=== PATIENT | male | born 1955 | race Caucasian/White ===

== ENCOUNTER 2024-10-17 17:47 | Emergency (ER) | payer MEDICARE, MEDICAID ==
[~2024-10-17] VITALS: Ht 193 cm; Wt 111.0 kg
[~2024-10-17 17:47] MED LIST: ALBUTEROL; BACL10TA2 PO; FLO0.1T PO; FURO-150 PO; LACT-373 PO; LORA10TA7 PO; MIDO10TA3 PO; MULT-25 PO; OMEP40CA21 PO; ONDA-103 PO; RIFA550T PO
[2024-10-17 18:28] LABS: BASOPHILS % (AUTO) 0.3 % (0-1); EOSINOPHILS # (AUTO) 0.1 X10'3 (0-0.9); EOSINOPHILS % (AUTO) 0.6 % (0-6); HEMATOCRIT 28.4 % (42.0-52.0); HEMOGLOBIN 9.9 g/dl (14.0-17.9); LYMPHOCYTES # (AUTO) 1.6 X10'3 (1.1-4.8); LYMPHOCYTES % (AUTO) 17.5 % (21-51); MEAN CORPUSCULAR HEMOGLOBIN 37.7 PG (27.0-31.0); MEAN CORPUSCULAR HGB CONC 34.8 g/dL (33.0-36.5); MEAN CORPUSCULAR VOLUME 108.5 FL (78-98); MEAN PLATELET VOLUME 7.9 FL (7.4-10.4); MONOCYTES # (AUTO) 0.7 X10'3 (0-0.9); MONOCYTES % (AUTO) 7.5 % (2-12); NEUTROPHILS % (AUTO) 74.1 % (42-75); PLATELET COUNT 68 X10'3 (140-440); RED BLOOD COUNT 2.62 X10'6 (4.70-6.10); RED CELL DISTRIBUTION WIDTH 19.4 % (11.5-14.5); WHITE BLOOD COUNT 9.4 X10'3 (4.5-11.0)
[2024-10-17 18:43] LABS: ALANINE AMINOTRANSFERASE 55 U/L (12-78); ALBUMIN 2.3 G/DL (3.4-5.0); ALKALINE PHOSPHATASE 130 IU/L (46-116); ANION GAP 4 (8-16); ASPARTATE AMINO TRANSFERASE 72 U/L (10-37); BILIRUBIN,TOTAL 5.3 MG/DL (0.1-1.0); BLOOD UREA NITROGEN 22 MG/DL (7-18); BUN/CREATININE RATIO 18.5 (10.0-20.0); CALCIUM 9.1 MG/DL (8.5-10.1); CHLORIDE 103 MMOL/L (99-107); CREATININE 1.19 MG/DL (0.60-1.10); LIPASE 32 U/L (16-77); POTASSIUM 3.6 MMOL/L (3.5-5.1); SODIUM 134 MMOL/L (135-145); TOTAL CARBON DIOXIDE 27.3 MMOL/L (24-32); eCRCL 71 ML/MIN; eGFR 60 ML/MIN
[2024-10-17 18:44] LABS: ALBUMIN/GLOBULIN RATIO 0.5 (1.1-1.5); GLUCOSE 123 MG/DL (70-104); TOTAL PROTEIN 7.1 G/DL (6.4-8.2)
[2024-10-17 18:45] LABS: ANISOCYTOSIS 2+; PLATELET ESTIMATE DECREASED
[2024-10-17] MEDS: baclofen 10mg tablet PO STA (19:28)
[2024-10-17] MEDS: normal saline 1000ml 1,000 ML IV ONE (20:00)
[2024-10-17] MEDS: albumin (human) 25% 100 ML IV solution IV ONE (20:31)
[2024-10-18] VITALS: BP 109/64; PULSE 94; RESP 16; TEMP 98; O2SAT 98
== END 2024-10-18 00:07 | disposition home or self-care (01) ==
LOC: ER 17:50
DX: R18.8 Other ascites (principal); D64.9 Anemia, unspecified; Z88.5 Allergy status to narcotic agent; Z88.6 Allergy status to analgesic agent; Z79.899 Other long term (current) drug therapy
CPT/HCPCS: 36415; 49083; 80053; 83690; 85008; 85025; 96361; 96365; 99285; J7030; P9047; Z7610

== ENCOUNTER 2024-12-25 13:27 | Emergency (ER) | payer MEDICARE, MEDICAID ==
[~2024-12-25] VITALS: Ht 193 cm; Wt 110.5 kg
[~2024-12-25 13:27] MED LIST changes: -FLO0.1T PO; +FLUD0.1T2 PO
[2024-12-25 13:36] VITALS: TEMP 98.3
--- NOTE | 2024-12-25 14:07 | Physician Documentation ---
History of Present Illness Chief Complaint: See Chief Complaint Stated Complaint: ABD PAIN Time Seen by MD: 13:51 Mode of Arrival: POV HPI 69-year-old male presents to the ED with a complaint of abdominal distention likely secondary to previously diagnosed ascites. States he attempted to get his ascites tapped via paracentesis in the outpatient setting but was unable to obtain an appointment due to his doctor being out of town. Reports increased shortness of breath abdominal pain Day of Onset: Dec 25, 2024 Medication Reconciliation Allergies: Coded Allergies: acetaminophen (Unverified Allergy, Unknown, D/T CIRRHOSIS, 10/08/24) hydrocodone (Unverified Allergy, Unknown, D/T CIRRHOSIS, 10/08/24) ibuprofen (Unverified Allergy, Unknown, D/T CIRRHOSIS, 10/08/24) Scheduled Baclofen (Baclofen), 0.5 TAB PO TID, (Reported) Fludrocortisone Acetate* (Florinef*), 0.2 MG PO DAILY@0830 Furosemide* (Lasix*), 1 TAB PO DAILY, (Reported) Lactulose (Lactulose), 45 GM PO Q6H Loratadine (Loratadine), 1 TAB PO DAILY, (Reported) Midodrine Hcl (Midodrine Hcl), 1 TAB PO TID, (Reported) Multivitamin with Folic Acid (Thera Tablet), 1 EACH PO DAILY Omeprazole (Prilosec), CAP PO QAM, (Reported) Rifaximin (Xifaxan), 550 MG PO BID Scheduled PRN Ondansetron HCl (Ondansetron HCl), 1 TAB PO Q12H PRN for nausea/vomiting, (Reported) Miscellaneous Medications [Albuterol], (Reported) Past Medical History Past Medical History: Cirrohsis, Anemia, Liver Disease, Acute Kidney Injury Past Surgical History: noncontributory Patient History: FH: breast cancer MOTHER Sister FH: liver cancer FATHER Drug Use: none Lives In: Home Review of Systems All Other Systems at this time: Reviewed and Negative ROS As stated above in the HPI, otherwise all systems are reviewed and negative. Physical Exam Vital Signs: Temperature: 98.3, Source: Oral, Heart Rate: 80, Respiratory Rate: 18, BP: 84/44, Pulse Oximetry: 88, Weight: 110.500 Oxygen Flow Rate: 0 Physical Exam General: Alert, no apparent distress. Respiratory: Lungs clear, no respiratory distress. Cardiovascular: Regular rate and rhythm, no murmurs. Gastrointestinal: Soft, distended bowel sounds present, Neurologic: Oriented x4. Psychiatric: Normal mood and affect. Skin: Normal color, warm and dry. No edema, no ecchymosis. Procedures Peritoneal Lavage Peritoneal Lavage Procedure: empty bladder Anesthesia: Lidocaine Position: subumbilical Fluid Collected: yellow Tolerated Procedure Well?: yes, no complications Progress Results/Orders Results/Orders Vital Signs 12/25/24 12/25/24 13:36 13:57 Temp 98.3 Pulse 80 Resp 16 18 B/P (MAP) 84/44 Pulse Ox 88 O2 Flow Rate 0 Medical Decision Making Findings Patient tolerated procedure well. Total of 7 L were taken off. He received 100 mL 25% albumin. He was pressure maintained although slightly soft. Patient reported overall improved symptoms cleared him for discharge Differential Dx:Considerations: Include: AAA, Angina/MO, Aortic dissection, Appendicitis, Bowel obstruction, Cholangitis, Cholelithasis, Constipation, Diverticular disease, Esophageal rupture, Esophagitis, Gastritis/PUD, Gastroenteritis, GI hemorrhage, Hernia, Hepatitis, Inflammatory BD, Ischemic bowel, Pancreatitis, Porphyria, Testicular torsion, Trauma, intraabdominal, Urinary obstruction, Urinary tract infection, Urolithiasis, Other Departure Disposition: 01 HOME / SELF CARE / HOMELESS Impression: Primary Impression: Abdominal pain Additional Impressions: Cirrhosis Ascites Condition: Improved Referrals: NO PRIMARY CARE PROVIDER (PCP) Signature Scribe Signature: e Attestation: The note accurately reflects work and decisions made by me.Tom Treviño NP 12/25/24 14:34 TOM FULLER NP Dec 25, 2024 14:07
[2024-12-25] MEDS: albumin (human) 25% 100 ML IV solution IV ONE (14:36)
[2024-12-25 14:55] LABS: EOSINOPHILS # (AUTO) 0.1 X10'3 (0-0.9); HEMOGLOBIN 9.9 g/dl (14.0-17.9); LYMPHOCYTES # (AUTO) 1.1 X10'3 (1.1-4.8); MONOCYTES # (AUTO) 0.6 X10'3 (0-0.9); MONOCYTES % (AUTO) 16.4 % (2-12); RED CELL DISTRIBUTION WIDTH 18.8 % (11.5-14.5); WHITE BLOOD COUNT 3.8 X10'3 (4.5-11.0)
[2024-12-25 14:57] LABS: BASOPHILS % (AUTO) 0.7 % (0-1); EOSINOPHILS % (AUTO) 2.9 % (0-6); HEMATOCRIT 28.2 % (42.0-52.0); LYMPHOCYTES % (AUTO) 29.4 % (21-51); MEAN CORPUSCULAR HEMOGLOBIN 37.5 PG (27.0-31.0); MEAN CORPUSCULAR HGB CONC 35.2 g/dL (33.0-36.5); MEAN CORPUSCULAR VOLUME 106.6 FL (78-98); MEAN PLATELET VOLUME 7.5 FL (7.4-10.4); NEUTROPHILS # (AUTO) 1.9 X10'3 (1.8-7.7); NEUTROPHILS % (AUTO) 50.6 % (42-75); PLATELET COUNT 67 X10'3 (140-440); RED BLOOD COUNT 2.65 X10'6 (4.70-6.10)
[2024-12-25 15:05] LABS: ALANINE AMINOTRANSFERASE 33 U/L (12-78); ALBUMIN 2.4 G/DL (3.4-5.0); ALKALINE PHOSPHATASE 105 IU/L (46-116); ANION GAP 0 (8-16); ASPARTATE AMINO TRANSFERASE 58 U/L (10-37); BILIRUBIN,TOTAL 6.8 MG/DL (0.1-1.0); BLOOD UREA NITROGEN 19 MG/DL (7-18); BUN/CREATININE RATIO 19.6 (10.0-20.0); CALCIUM 8.6 MG/DL (8.5-10.1); CHLORIDE 101 MMOL/L (99-107); CREATININE 0.97 MG/DL (0.60-1.10); LIPASE 22 U/L (16-77); POTASSIUM 4.8 MMOL/L (3.5-5.1); SODIUM 133 MMOL/L (135-145); TOTAL CARBON DIOXIDE 32.2 MMOL/L (24-32); eCRCL 87 ML/MIN; eGFR 77 ML/MIN
[2024-12-25 15:06] LABS: ALBUMIN/GLOBULIN RATIO 0.5 (1.1-1.5); GLUCOSE 97 MG/DL (70-104); TOTAL PROTEIN 6.8 G/DL (6.4-8.2)
[2024-12-25 15:21] LABS: ANISOCYTOSIS 2+; PLATELET ESTIMATE DECREASED; TOTAL CELLS COUNTED 100
[2024-12-25 15:22] LABS: ELLIPTOCYTES FEW; STOMATOCYTES FEW; TARGET CELLS FEW
[2024-12-25 15:46] VITALS: BP 91/47; PULSE 69; RESP 17; O2SAT 100
== END 2024-12-25 15:50 | disposition home or self-care (01) ==
LOC: ER 13:28
DX: K74.60 Unspecified cirrhosis of liver (principal); R18.8 Other ascites; Z88.5 Allergy status to narcotic agent; Z88.6 Allergy status to analgesic agent; Z88.8 Allergy status to other drugs, medicaments and biological substances
CPT/HCPCS: 36415; 49082; 80053; 83690; 85025; 87070; 96365; 99285; P9047; Z7610; 85007; 96374

== ENCOUNTER 2025-01-10 09:17 | Emergency (ER) | payer MEDICARE, MEDICAID ==
[~2025-01-10] VITALS: Ht 193 cm; Wt 108.2 kg
[2025-01-10 09:44] VITALS: TEMP 99.1
--- NOTE | 2025-01-10 10:05 | Physician Documentation ---
History of Present Illness Chief Complaint: See Chief Complaint Stated Complaint: REQUESTING STOMACH TO BE DRAINED Time Seen by MD: 10:01 HPI 69-year-old male presents to the emergency department with abdominal distention, patient has a history of cirrhosis, states last paracentesis was a couple of weeks ago where they drained 5 L, he is here today requesting a repeat paracentesis denies abdominal pain or fever. Timing/Duration: weeks Quality/Severity: mild Location: diffuse Radiation: no radiation Activities on Onset: spontaneous History Of: other Associated Symptoms: denies symptoms Medication Reconciliation Allergies: Coded Allergies: acetaminophen (Unverified Allergy, Unknown, D/T CIRRHOSIS, 10/08/24) hydrocodone (Unverified Allergy, Unknown, D/T CIRRHOSIS, 10/08/24) ibuprofen (Unverified Allergy, Unknown, D/T CIRRHOSIS, 10/08/24) Scheduled Baclofen (Baclofen), 0.5 TAB PO TID, (Reported) Fludrocortisone Acetate* (Florinef*), 0.2 MG PO DAILY@0830 Furosemide* (Lasix*), 1 TAB PO DAILY, (Reported) Lactulose (Lactulose), 45 GM PO Q6H Loratadine (Loratadine), 1 TAB PO DAILY, (Reported) Midodrine Hcl (Midodrine Hcl), 1 TAB PO TID, (Reported) Multivitamin with Folic Acid (Thera Tablet), 1 EACH PO DAILY Omeprazole (Prilosec), CAP PO QAM, (Reported) Rifaximin (Xifaxan), 550 MG PO BID Scheduled PRN Ondansetron HCl (Ondansetron HCl), 1 TAB PO Q12H PRN for nausea/vomiting, (Reported) Miscellaneous Medications [Albuterol], (Reported) Past Medical History Past Medical History: Cirrohsis, Anemia, Liver Disease, Acute Kidney Injury Past Surgical History: noncontributory Patient History: FH: breast cancer MOTHER Sister FH: liver cancer FATHER Drug Use: none Lives In: Home Review of Systems All Other Systems at this time: Reviewed and Negative Constitutional: Reports: no symptoms reported, see HPI Gastrointestinal: Reports: abdomen distended; Denies: abdominal pain Physical Exam Vital Signs: RN Vital Signs have been reviewed: Yes, Temperature: 99.1, Source: Oral, Heart Rate: 68, Respiratory Rate: 12, BP: 97/63, Pulse Oximetry: 94, Weight: 108.180 Oxygen Flow Rate: 0 Pulse Oximetry Reflects: adequate oxygenation, hypoxemia General Appearance: alert, no apparent distress EENT: normal ENT inspection, pharynx normal Neck: normal inspection, full range of motion, supple, non-tender Respiratory: lungs clear, no respiratory distress Chest: no accessory muscle use, chest non-tender Cardiovascular: regular rate, rhythm, no edema Gastrointestinal Diffuse abdominal distention. Procedures Additional Procedures Additional Procedure Note Paracentesis Consent obtained, risks and benefits including bleeding and SBP and bowel perforation discussed Using sterile procedure, skin was cleaned draped in normal fashion, scalpel was used to jennifer the skin, catheter over the needle with a five Romanian catheter was inserted, clear straw-colored fluid was withdrawn with 5 cc syringe, needle was removed leaving catheter in place, 4 L of fluid was removed without complication no bleeding noted, catheter removed, no fluid was leaking from the incision site, sterile bandage was placed over the incision site, patient tolerated well vital signs were monitored during the procedure, follow up instructions were provided including instructions to monitor for SBP and/or other complications. Progress Results/Orders Results/Orders Vital Signs 01/10/25 01/10/25 01/10/25 09:22 09:44 09:54 Temp 98.5 99.1 Pulse 74 68 Resp 18 19 12 B/P (MAP) 99/55 97/63 (74) Pulse Ox 94 94 O2 Flow Rate 0 Re-Evaluation Re-Evaluation : Progress 12:05 p.m., patient re-evaluated, status post paracentesis, patient tolerated well is requesting discharge, urged to get outpatient follow up for elective paracentesis on an as-needed basis outpatient Medical Decision Making Differential Dx:Considerations: Include: Appendicitis, Bowel obstruction, Cholangitis, Constipation Departure Disposition: 01 HOME / SELF CARE / HOMELESS Impression: Primary Impression: Ascites Condition: Improved Discharge Instructions: Ascites Additional Instructions: Please discuss setting up outpatient elective paracentesis with your primary care provider, return to the ER for any increased pain, fever or concerns Referrals: NO PRIMARY CARE PROVIDER (PCP) Education Educated: Patient Educated regarding: diagnosis, treatment Signature Scribe Signature: None Attestation: Dictated by myself SUREKHA PORTILLO DO January 10, 2025 10:05
[2025-01-10 10:52] LABS: INR 1.5 INR
[2025-01-10 10:57] LABS: ALANINE AMINOTRANSFERASE 39 U/L (12-78); ALBUMIN 2.4 G/DL (3.4-5.0); ALKALINE PHOSPHATASE 124 IU/L (46-116); ANION GAP 4 (8-16); ASPARTATE AMINO TRANSFERASE 75 U/L (10-37); BILIRUBIN,TOTAL 5.2 MG/DL (0.1-1.0); BLOOD UREA NITROGEN 20 MG/DL (7-18); BUN/CREATININE RATIO 21.3 (10.0-20.0); CALCIUM 8.9 MG/DL (8.5-10.1); CHLORIDE 104 MMOL/L (99-107); CREATININE 0.94 MG/DL (0.60-1.10); POTASSIUM 5.3 MMOL/L (3.5-5.1); SODIUM 137 MMOL/L (135-145); TOTAL CARBON DIOXIDE 29.2 MMOL/L (24-32); eCRCL 90 ML/MIN; eGFR 79 ML/MIN
[2025-01-10 11:06] LABS: ALBUMIN/GLOBULIN RATIO 0.5 (1.1-1.5); GLUCOSE 116 MG/DL (70-104); TOTAL PROTEIN 6.8 G/DL (6.4-8.2)
[2025-01-10 11:09] LABS: HEMATOCRIT 29.5 % (42.0-52.0); HEMOGLOBIN 10.3 g/dl (14.0-17.9); MEAN CORPUSCULAR HEMOGLOBIN 37.5 PG (27.0-31.0); MEAN CORPUSCULAR HGB CONC 34.8 g/dL (33.0-36.5); MEAN CORPUSCULAR VOLUME 107.8 FL (78-98); MEAN PLATELET VOLUME 8.3 FL (7.4-10.4); PLATELET COUNT 70 X10'3 (140-440); RED BLOOD COUNT 2.74 X10'6 (4.70-6.10); WHITE BLOOD COUNT 4.6 X10'3 (4.5-11.0)
[2025-01-10] MEDS: LIDOcaine 1% 30ml preserv. free vial SQ STA (11:30)
[2025-01-10 11:44] LABS: ANISOCYTOSIS 2+; PLATELET ESTIMATE DECREASED; TOTAL CELLS COUNTED 100
[2025-01-10 12:22] VITALS: BP 97/56; PULSE 70; RESP 14; O2SAT 94
== END 2025-01-10 12:25 | disposition home or self-care (01) ==
LOC: ER 09:18
DX: R18.8 Other ascites (principal); Z88.5 Allergy status to narcotic agent; Z88.6 Allergy status to analgesic agent; Z88.8 Allergy status to other drugs, medicaments and biological substances
CPT/HCPCS: 36415; 49082; 80053; 85007; 85025; 85610; 99285; Z7610

== ENCOUNTER 2025-01-13 11:54 | Inpatient (IN) | payer MEDICARE, MEDICAID ==
[2025-01-13] VITALS (11 sets, daily range): BP systolic 69–100; BP diastolic 35–51; PULSE 110–117; RESP 18–29; TEMP 100.6; O2SAT 93–97
[~2025-01-13] VITALS: Ht 193 cm; Wt 97.5 kg
--- NOTE | 2025-01-13 12:27 | RADIOLOGY REPORT ---
EXAM: DI CHEST,SINGLE VIEW Indication: ALOC Technique: Single frontal view of the chest was obtained Comparison: DI CHEST,SINGLE VIEW on DOS: 10/09/24, DI CHEST,SINGLE VIEW on DOS: 08/20/24 FINDINGS: Lines and Tubes: None Lungs: No focal consolidation. Pleura: No effusion. No pneumothorax. Cardiomediastinal contours: Cardiomegaly. Bones: No acute osseous abnormality. IMPRESSION: No acute cardiopulmonary disease.
--- NOTE | 2025-01-13 12:37 | ELECTROCARDIOGRAPH REPORT ---
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 Ernesto Rivas Measurements Intervals [place] Rate: 107 P: 44 DC: 148 QRS: 29 QRSD: 92 T: 68 QT: 364 QTc: 486 Interpretive Statements Sinus tachycardia Low voltage, extremity and precordial leads Borderline prolonged QT interval Electronically Signed On 01-20-2025 21:44:[address] Ernesto Rivas Please click the below link to view image of tracing.
[2025-01-13 12:40] LABS: BASOPHILS % (AUTO) 0.2 % (0-1); LYMPHOCYTES # (AUTO) 0.2 X10'3 (1.1-4.8); MONOCYTES # (AUTO) 0.1 X10'3 (0-0.9)
[2025-01-13 12:43] LABS: EOSINOPHILS % (AUTO) 0 % (0-6); HEMATOCRIT 29.1 % (42.0-52.0); LYMPHOCYTES % (AUTO) 8.6 % (21-51); MEAN CORPUSCULAR HEMOGLOBIN 37.4 PG (27.0-31.0); MEAN CORPUSCULAR HGB CONC 34.4 g/dL (33.0-36.5); MEAN CORPUSCULAR VOLUME 108.7 FL (78-98); MEAN PLATELET VOLUME 7.9 FL (7.4-10.4); MONOCYTES % (AUTO) 5.9 % (2-12); NEUTROPHILS # (AUTO) 1.7 X10'3 (1.8-7.7); NEUTROPHILS % (AUTO) 85.3 % (42-75); PLATELET COUNT 67 X10'3 (140-440); RED BLOOD COUNT 2.67 X10'6 (4.70-6.10); RED CELL DISTRIBUTION WIDTH 18.2 % (11.5-14.5)
[2025-01-13 12:44] LABS: BILIRUBIN,URINE MODERATE (Neg); CLARITY,URINE CLOUDY (Clear); COLOR,URINE YELLOW (Yellow); GLUCOSE, URINE NEGATIVE (Neg); KETONES,URINE TRACE mg/dl (Neg); LEUKOCYTE ESTERASE ,URINE TRACE (Neg); OCCULT BLOOD,URINE SMALL (Neg); PROTEIN,URINE 100 mg/dl (Neg); UA COLLECTION TYPE FOLEY CATH
[2025-01-13 12:45] LABS: NITRITES, URINE NEGATIVE (Neg)
[2025-01-13] MEDS: CefTRIAXone 2gm/D5W 50ml BAG 50 ML IV ONE (12:48)
[2025-01-13] MEDS: normal saline 1000ml 1,000 ML IV ONE (12:48)
[2025-01-13 12:51] LABS: ALBUMIN 2.2 G/DL (3.4-5.0); ANION GAP 7 (8-16); BLOOD UREA NITROGEN 20 MG/DL (7-18); BUN/CREATININE RATIO 15.4 (10.0-20.0); CALCIUM 8.6 MG/DL (8.5-10.1); CHLORIDE 102 MMOL/L (99-107); POTASSIUM 3.8 MMOL/L (3.5-5.1); SODIUM 134 MMOL/L (135-145); TOTAL CARBON DIOXIDE 25.5 MMOL/L (24-32); eCRCL 65 ML/MIN; eGFR 55 ML/MIN
[2025-01-13 12:54] LABS: BACTERIA,URINE 2+ /HPF (Neg); SQUAMOUS EPITHELIAL CELL,UR NONE SEEN /LPF (FEW); WBC,URINE 20-30 /HPF (0-4)
[2025-01-13 13:04] LABS: GLUCOSE 95 MG/DL (70-104)
[2025-01-13] MEDS ORDERED: albumin (human) 25% 100ml IV 100 ML in normal saline 500ml IV soln 400 ML IV ONE (13:35)
[2025-01-13] MEDS: albumin (human) 25% 100ml IV 500 ML IV ONE (13:51)
[2025-01-13 14:08] LABS: ANISOCYTOSIS 2+; NUCLEATED RED BLOOD CELLS 1 /100WBC (0-0); PLATELET ESTIMATE DECREASED; TOTAL CELLS COUNTED 100
[2025-01-13 14:09] LABS: SCHISTOCYTES FEW
[2025-01-13 14:10] LABS: TEAR DROP CELLS FEW
[2025-01-13] MEDS: normal saline 1000ML IV soln IVB ONE (14:28)
--- NOTE | 2025-01-13 14:32 | Physician Documentation ---
History of Present Illness ~ Chief Complaint: ALOC Stated Complaint: ALOC Time Seen by MD: 12:01 Mode of Arrival: EMS HPI 69 year old male BIB EMS from home. Has known liver cirrhosis, was tapped on Saturday and has not been feeling well since then. Was altered at home per EMS and has not reportedly been taking his lactulose at home and has been febrile. No other history obtainable at this time. Medication Reconciliation Allergies: Coded Allergies: acetaminophen (Unverified Allergy, Unknown, D/T CIRRHOSIS, 01/13/25) hydrocodone (Unverified Allergy, Unknown, D/T CIRRHOSIS, 01/13/25) ibuprofen (Unverified Allergy, Unknown, D/T CIRRHOSIS, 01/13/25) Scheduled Baclofen (Baclofen), 0.5 TAB PO TID, (Reported) Fludrocortisone Acetate* (Florinef*), 0.2 MG PO DAILY@0830 Furosemide* (Lasix*), 1 TAB PO DAILY, (Reported) Lactulose (Lactulose), 45 GM PO Q6H Loratadine (Loratadine), 1 TAB PO DAILY, (Reported) Midodrine Hcl (Midodrine Hcl), 1 TAB PO TID, (Reported) Multivitamin with Folic Acid (Thera Tablet), 1 EACH PO DAILY Omeprazole (Prilosec), CAP PO QAM, (Reported) Rifaximin (Xifaxan), 550 MG PO BID Scheduled PRN Ondansetron HCl (Ondansetron HCl), 1 TAB PO Q12H PRN for nausea/vomiting, (Reported) Miscellaneous Medications [Albuterol], (Reported) Past Medical History Past Medical History: Cirrohsis, Anemia, Liver Disease, Acute Kidney Injury Past Surgical History: noncontributory Patient History: FH: breast cancer MOTHER Sister FH: liver cancer FATHER Drug Use: none Lives In: Home Review of Systems All Other Systems at this time: Reviewed and Negative Physical Exam Vital Signs: RN Vital Signs have been reviewed: Yes, Temperature: 101.2, Source: Bladder, Heart Rate: 104, Respiratory Rate: 25, BP: 86/44, Pulse Oximetry: 93, Weight: 101.000 Oxygen Flow Rate: 0 Physical Exam HEENT: PERRL, moist oral mucosa, EOMI; icteric Pulmonary: No respiratory distress Cardiac: tachycardic, no murmur, rub or gallop GI: distended, soft, nontender, no guarding, no rebound MSK: no deformity Skin: w/d/i, no rash; +jaundice Neuro: alert, altered, nonfocal Psych: normal affect Procedures Additional Procedures Procedure Note Paracentesis completed using sterile technique. The tap was placed in the left lower quadrant of the abdominal cavity. 4L were removed. Patient tolerated procedure well.albumin was infused based on an a low systolic blood pressure. pt remains asymptomatic while in the ED. fluid appeared clear during paracentesis Progress Results/Orders Reviewed/noted all lab results: Yes Results/Orders Medications Received in ER Medications (Trade) Dose Ordered Sig/Pamela Route PRN Reason Start Time Stop Time Status Last Admin Dose Admin Sodium Chloride 1,000 ml @ 1,000 mls/hr ONCE ONCE IV 01/13/25 12:45 01/13/25 13:44 DC 01/13/25 12:48 1,000 MLS/HR Ceftriaxone Sodium/Dextrose 50 ml @ 100 mls/hr ONCE ONCE IV 01/13/25 12:45 01/13/25 13:14 DC 01/13/25 12:48 100 MLS/HR Albumin Human 500 ml @ 500 mls/hr ONCE ONCE IV 01/13/25 13:46 01/13/25 14:34 DC 01/13/25 13:51 500 MLS/HR (sodium chloride 1000ml IV soln) 1,000 ml ONCE ONCE IVB 01/13/25 14:25 01/13/25 14:26 DC 01/13/25 14:28 1,000 ML (albumin (human) 25% 100ml IV) 200 ml ONCE ONCE IV 01/13/25 14:40 01/13/25 14:41 DC 01/13/25 14:45 200 ML Vital Signs 01/13/25 01/13/25 01/13/25 01/13/25 11:55 12:34 12:36 12:42 Temp 100.9 100.0 100.8 Pulse 110 105 103 Resp 25 22 22 26 B/P (MAP) 95/52 79/37 (51) 78/46 (57) Pulse Ox 96 96 96 O2 Flow Rate 2.0 2.0 2.0 01/13/25 01/13/25 01/13/25 01/13/25 13:00 13:30 14:29 14:41 Temp 101.2 100.2 100.2 Pulse 103 104 97 104 Resp 24 22 28 B/P (MAP) 91/52 (65) 86/44 (58) 80/38 (52) 89/45 (60) Pulse Ox 93 93 95 96 O2 Flow Rate 0 0 0 0 Laboratory Tests Test 01/13/25 12:04 01/13/25 12:08 01/13/25 12:20 White Blood Count 2.0 L Red Blood Count 2.67 L Hemoglobin 10.0 L Hematocrit 29.1 L Mean Corpuscular Volume 108.7 H Mean Corpuscular Hemoglobin 37.4 H Mean Corpuscular Hemoglobin Concent 34.4 Red Cell Distribution Width 18.2 H Platelet Count 67 L Mean Platelet Volume 7.9 Neutrophils (%) (Auto) 85.3 H Lymphocytes (%) (Auto) 8.6 L Monocytes (%) (Auto) 5.9 Eosinophils (%) (Auto) 0 Basophils (%) (Auto) 0.2 Neutrophils # (Auto) 1.7 L Lymphocytes # (Auto) 0.2 L Monocytes # (Auto) 0.1 Eosinophils # (Auto) 0.0 Basophils # (Auto) 0.0 CBC Comment Differential Total Cells Counted 100 Neutrophils % (Manual) 76.0 H Band Neutrophils % 13.0 H Lymphocytes % (Manual) 9.0 L Monocytes % (Manual) 2.0 Nucleated Red Blood Cells 1 H Platelet Estimate Decreased Red Blood Cell Morphology Perf Basophilic Stippling Anisocytosis 2+ Macrocytosis 1+ Tear Drop Cells Few Schistocytes Few Sodium Level 134 L Potassium Level 3.8 Chloride Level 102 Carbon Dioxide Level 25.5 Anion Gap 7 L Blood Urea Nitrogen 20 H Creatinine 1.30 H Estimated GFR/1.73 m2 55 BUN/Creatinine Ratio 15.4 Glucose Level 95 Lactic Acid Level 5.0 *H Calcium Level 8.6 Albumin 2.2 L Chemistry Comments Ammonia 33 H Urine Specimen Description Recinos cath Urine Color Yellow Urine Clarity Cloudy Urine pH 6.0 Urine Specific [place] 1.020 Urine Protein 100 H Urine Glucose (UA) Negative Urine Ketones Trace H Urine Occult Blood Small Urine Nitrite Negative Urine Bilirubin Moderate Urine Urobilinogen 1.0 Urine Leukocyte Esterase Trace H Urine RBC 3-10 Urine WBC 20-30 H Urine Squamous Epithelial Cells None seen Urine Bacteria 2+ Urine Culture Indicated Indicated Volume Urine Centrifuged 10 ml Urine Comment Microbiology Date/Time Source Procedure Growth Status 01/13/25 12:55 Urine Recinos Cath Urine Culture - Preliminary Culture received. Resulted 01/13/25 12:08 Blood Iv Start Blood Culture - Preliminary NEGATIVE (LESS THAN 24 HOURS) Resulted EKG/XRAY/CT/US/VASC/MRI Chest X-Ray : Interpreted By: self Views: 1 VIEW Indication: other Lungs: normal Mediastinum: normal Ribs/Bones: normal Abdomen: normal Impression: no acute disease Medical Decision Making Findings 69 year old male with sepsis and liver disease, altered and appearing septic on arrival. Hypotensive as well, IVF and antibiotics started. RENEE Vu performed a paracentesis and was sent for studies. Noted elevated lactate, bilirubin, anemia, and UTI. Spoke with Dr. Schroeder for ICU level admission and awaiting pending studies. This patient has required 60 minutes of critical care time exclusive of separately billable procedure for: blood gas interpretation, fluid resuscitation, frequent reassessment, and consultation with specialists Differential Dx:Considerations: Include: dehydration, DKA, encephalopathy, hypercalcemia, hypoglycemia, hypernatremia, hyponatremia, postictal, enceph alopathy, ETOH intoxication, medication toxicity, infection - meningitis, infection - sepsis, infection - UTI, renal failure, respiratory failure, hyperthermia, hypothermia Additional Information Ddx includes hepatic encephalopathy, spontaneous bacterial peritonitis Departure Disposition: ADMITTED INPATIENT 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 Attestation: . VENKATA SILVA MD January 13, 2025 14:32 BEN VU NP January 13, 2025 14:51
[2025-01-13] MEDS: albumin (human) 25% 100 ML IV solution IV ONE (14:45)
[2025-01-13 15:08] LABS: APTT 34 SECONDS (22-32); INR 1.7 INR; PROTHROMBIN TIME 16.7 SECONDS (9.0-12.0)
[2025-01-13 15:14] LABS: ABG BASE EXCESS -7.3 mmol/L (-2.0-3.0); ABG HCO3 18.2 mmol/L (21.0-28.0); ABG OXYGEN SATURATION 89.4 % (94.0-98.0); ABG PCO2 (T) 38.2 mmHg (35.0-48.0); ABG PH (T) 7.301 (7.350-7.450); ABG PO2 (T) 66.3 mmHg (83.0-108.0); ALLEN'S TEST POSITIVE; FHHb 10.4 % (0.0-5.0); FMetHb 0.3 % (0.0-1.5); FO2Hb 87.3 % (94.0-98.0); TOTAL HEMOGLOBIN 9.7 G/dl (13.5-17.5)
--- NOTE | 2025-01-13 15:23 | HISTORY AND PHYSICAL-Residence ---
History & Physical Providers to CC Resident Creating Document: USMAN MURO, RES ~ History of Present Illness Reason for Admit\Complaint: Hypotension History of Present Illness [age] and old male past medical history of decompensated liver cirrhosis, Bi- weekly paracentesis presented to the ED today chief complaints of worsening generalized weakness that started since the last three days after he had a paracentesis done in the ER where around 4 L fluid was removed. The patient reports that he got his regular by weekly paracentesis done three days ago after which started having severe nausea and vomiting, dizziness and worsening generalized weakness. The patient's is at the bedside and reports that the patient has been very nauseated and has been throwing up whatever she eats since Saturday and hence was not able to take his daily lactulose or any other medications. She was worried that the patient might get confused if he does not take his lactulose and hence brought him to the ER today requesting a repeat paracentesis to be done. The patient currently reports of pain in his left hip which is chronic after he sustained fracture of his left hip. He denies any other concerns or complaints at the moment such as chest pain, palpitations, headaches, cognition, abdominal pain, diarrhea or constipation. The patient's last bowel movement was yesterday. The patient underwent a therapeutic paracentesis in the ER and 4 L fluid was drained. Ordered diagnostic studies now, we will follow up accordingly. Allergies: Coded Allergies: acetaminophen (Unverified Allergy, Unknown, D/T CIRRHOSIS, 01/13/25) hydrocodone (Unverified Allergy, Unknown, D/T CIRRHOSIS, 01/13/25) ibuprofen (Unverified Allergy, Unknown, D/T CIRRHOSIS, 01/13/25) Home Medications Home Medications Active Florinef* (Fludrocortisone Acetate) 0.1 Mg Tablet 0.2 Mg PO DAILY@0830 Lactulose 10 Gram/15 Ml Solution 45 Gm PO Q6H Take this medication 4 times a day you need to have two loose stools at least a day so you do not get confused. Do not ever stopped taking his medication. Xifaxan (Rifaximin) 550 Mg Tablet 550 Mg PO BID Thera Tablet (Multivitamin with Folic Acid) 400 Mcg Tablet 1 Each PO DAILY 30 Days Reported [Albuterol] Loratadine 10 Mg Tablet 1 Tab PO DAILY Lasix* (Furosemide) 20 Mg Tablet 1 Tab PO DAILY Midodrine Hcl 10 Mg Tablet 1 Tab PO TID Baclofen 10 Mg Tablet 0.5 Tab PO TID 30 Days Prilosec (Omeprazole) 40 Mg Capsule Cap PO QAM Ondansetron HCl 4 Mg Tablet 1 Tab PO Q12H PRN Past Medical History Past Medical History Decompensated liver cirrhosis Ascites requiring biweekly paracentesis Past Surgical History Surgical History Comment Bilateral inguinal hernia Family History Family History: FH: breast cancer MOTHER Sister FH: liver cancer FATHER Past Social History Social History Comment Lives at home with . Denies recreational drug use. Drug Use: None Lives In: Home ROS All Other Systems: Reviewed and Negative ROS As stated above in the HPI, otherwise all systems are reviewed and negative. Exam Vitals: Vital Signs Date Time Temp Pulse Resp B/P (MAP) Pulse Ox O2 Delivery O2 Flow Rate FiO2 01/13/25 14:41 100.2 104 28 89/45 (60) 96 0 General: General: Awake and Alert, in moderate distress. Generalized icterus. HEENT: Conjunctiva pink, Sclera clear, Mucus Membranes moist. Neck: Supple without masses and tenderness. Resp: Unlabored. B/l expiratory wheezing heard. Left basilar crackles present. Heart: Regular Rate and rhythm, normal S1 and S2 without murmur, rub or gallop. Abdomen: Distended. No tenderness on palpation. Extremities: No cyanosis,clubbing or edema. Skin: Warm and Dry. Neurology: No focal motor or sensory deficits. Diagnostic Data Last Recorded Lab Results: 01/13/25 1204 01/13/25 1204 Diagnostic Data: Laboratory Tests Test 01/13/25 12:04 Prothrombin Time 16.7 SECONDS (9.0-12.0) H INR International Normalized Ratio 1.7 INR Activated Partial Thromboplast Time 34 SECONDS (22-32) H Coagulation Comments Advance Care Planning Advanced Care planning: Add on additional 30 min Additional Plan Hypovolemic shock Decompensated liver cirrhosis Ascites Patient has a history of biweekly paracentesis. Patient had a paracentesis done three days during which 4-5 L of fluid was removed hence since then the patient has been having symptoms of generalized weakness, dizziness, fatigue, nausea and vomiting. He underwent another paracentesis in the ER today and 4 L of fluid was need. Ordered fluid analysis we will follow up accordingly. He developed significant hypotension after the paracentesis. Started the patient on IV albumin for fluid resuscitation. Continue close monitoring of the vitals. We will start the patient on IV pressors if the map does not improve/reach the goal of 65 with albumin infusion. Started the patient on IV ceftriaxone 2 g daily. Lactulose 20 mg p.o. b.i.d.. The goal will be to achieve at least 2-3 bowel movements per day. IV ondansetron for nausea and vomiting. IV Protonix 40 once daily for GI prophylaxis. Metabolic acidosis Lactic acidosis Most likely due to decompensated liver failure. Started the patient on IV fluid resuscitation. We will repeat lactic acid in 2 hours. Sepsis secondary to UTI Patient's urine analysis positive for 2+ bacteria, 20-30 WBCs, leukocyte esterase. Patient is being treated with IV ceftriaxone. Follow up with blood culture and urine culture. Chronic left hip pain As needed tramadol 50 mg b.i.d. for severe pain. ALHAJI Most likely secondary to acute tubular necrosis. Continue fluid resuscitation. We will continue to monitor renal function test closely. COPD Not in acute exacerbation. Started Duoneb nebulization Q4H. RT eval and treat. CODE STATUS: Full code. The patient stated that currently wants to be a full code and monitor have a detailed discussion with his daughter and decide on his code status later. DVT prophylaxis: SCDs GI prophylaxis: IV Protonix Diet: Regular Disposition: Patient is being admitted in the ICU in view of his significant hypotension most likely secondary to hypovolemic shock. Usman Muro MD Internal Medicine Resident, PGY-2 Date of Service: January 13, 2025 Billing Provider: HOLLI RAMOS MD,USMAN KEE, RES January 13, 2025 15:23
[2025-01-13] MEDS: ondansetron/PF 4mg/2ml inj IV PRN (15:36)
[2025-01-13] MEDS: traMADol 50MG tablet PO PRN (15:36)
[2025-01-13] MEDS ORDERED: TRAM50TA2 PO (15:56)
[2025-01-13] MEDS ORDERED: SPIR25TA5 PO (15:56)
[2025-01-13] MEDS ORDERED: FOLI1TAB27 PO (15:56)
[2025-01-13] MEDS ORDERED: FURO20TA4 PO (15:56)
[2025-01-13] MEDS ORDERED: THIA100T66 PO (15:56)
[2025-01-13] MEDS ORDERED: ALBU18HF2 INH (16:04)
[2025-01-13 16:08] LABS: ALANINE AMINOTRANSFERASE 36 U/L (12-78); ALKALINE PHOSPHATASE 92 IU/L (46-116); ASPARTATE AMINO TRANSFERASE 58 U/L (10-37); BILIRUBIN,TOTAL 8.7 MG/DL (0.1-1.0)
[2025-01-13 16:12] LABS: ALBUMIN/GLOBULIN RATIO 0.5 (1.1-1.5); TOTAL PROTEIN 6.5 G/DL (6.4-8.2)
--- NOTE | 2025-01-13 16:21 | RADIOLOGY REPORT ---
CHEST RADIOGRAPH Indication: central line placement Technique: Single frontal view of the chest was obtained Comparison: DI CHEST,SINGLE VIEW on DOS: 01/13/25, DI CHEST,SINGLE VIEW on DOS: 10/09/24, DI CHEST,SINGL E VIEW on DOS: 08/20/24 FINDINGS: Lines and Tubes: Left internal jugular CVP catheter with tip in superior vena cava. Lungs: There is mild diffuse interstitial pulmonary edema. Pleura: There is hazy appearance in the left thorax suggesting of pleural effusion. No pneumothorax. Cardiomediastinal contours: Unremarkable Bones: No acute osseous abnormality. IMPRESSION: 1. Mild interstitial pulmonary edema 2. The left lung has appearance suggesting of moderate left-sided pleural effusion 3. Right internal jugular CVP catheter in place
[2025-01-13] MEDS ORDERED: albumin (human) 25% 100ml IV 100 ML in dextrose 5% water 500ml 400 ML IV ONE (17:00)
[2025-01-13] MEDS: albumin (Human) 5% 250ml 250 ML IV ONE ×2 (17:16→18:32)
[2025-01-13 17:21] LABS: BFAPPEAR CLOUDY; BFCOLOR YELLOW; BFSOURCE PERITONEAL FLD; BFVOLUME 34 ML
[2025-01-13 17:22] LABS: BF RBC COUNT 635 /CU MM; BF WBC COUNT 3775 /CU MM (0-1000); LYMPHOCYTES,BODY FLUID 3 %; MONOCYTES,BODY FLUID 17 %; NEUTROPHILS,BODY FLUID 80 %
[2025-01-13] MEDS: pantoprazole 40 MG vial IV SCH (17:30)
[2025-01-13] MEDS: lactulose 20gm/30ml cup PO SCH (17:30)
[2025-01-13] MEDS: NORepinephrine 8mg/ 250ml NS 250 ML IV SCH (17:44)
[2025-01-13 18:08] LABS: GLUCOSE,BODY FLUID 85 MG/DL; LDH,BODY FLUID 39 U/L
[2025-01-13] MEDS: metoclopramide 10mg tablet PO ONE (18:32)
[2025-01-13 18:34] LABS: TOTAL PROTEIN,BODY FLUID < 2.0 G/DL
[2025-01-13 18:35] LABS: ALBUMIN,BODY FLUID < 0.6 G/DL
[2025-01-13] MEDS: traMADol 50MG tablet PO ONE (18:36)
[2025-01-13] MEDS: LIDOcaine 5% patch TP SCH (18:36)
[2025-01-13 19:18] LABS: BASOPHILS % (AUTO) 0.1 % (0-1); EOSINOPHILS % (AUTO) 0 % (0-6); HEMATOCRIT 24.7 % (42.0-52.0); HEMOGLOBIN 8.4 g/dl (14.0-17.9); LYMPHOCYTES # (AUTO) 0.3 X10'3 (1.1-4.8); LYMPHOCYTES % (AUTO) 8.7 % (21-51); MEAN CORPUSCULAR HEMOGLOBIN 37.8 PG (27.0-31.0); MEAN CORPUSCULAR HGB CONC 34.2 g/dL (33.0-36.5); MEAN CORPUSCULAR VOLUME 110.5 FL (78-98); MEAN PLATELET VOLUME 7.8 FL (7.4-10.4); MONOCYTES # (AUTO) 0.1 X10'3 (0-0.9); MONOCYTES % (AUTO) 2.2 % (2-12); PLATELET COUNT 57 X10'3 (140-440); RED BLOOD COUNT 2.24 X10'6 (4.70-6.10); WHITE BLOOD COUNT 3.4 X10'3 (4.5-11.0)
[2025-01-13] MEDS: ipratropium/albuterol 3ml nebule NEB SCH (19:32)
--- NOTE | 2025-01-13 20:41 | RADIOLOGY REPORT ---
EXAM: CT Abdomen and Pelvis Without Intravenous Contrast CLINICAL INDICATION: R/O BLEED POST PARACENTESIS TECHNIQUE: Axial computed tomography images of the abdomen and pelvis without intravenous contrast. This CT exam was performed using one or more of the following dose reduction techniques: automated exposure control, adjustment of the mA and/or kV according to patient size, and/or use of iterative r econstruction technique. CONTRAST: COMPARISON: CT CT ABDOMEN PELVIS on DOS: 10/09/24, CT CT ABDOMEN PELVIS on DOS: 08/20/24 FINDINGS: LUNG BASES: Unremarkable. No mass. No consolidation. PLEURAL SPACE: Large left pleural effusion. ABDOMEN: LIVER: Cirrhosis without ascites. GALLBLADDER AND BILE DUCTS: Cholelithiasis. No ductal dilation. PANCREAS: Unremarkable. No ductal dilation. SPLEEN: Unremarkable. No splenomegaly. ADRENALS: Unremarkable. No mass. KIDNEYS AND URETERS: Unremarkable. No obstructing stones. No hydronephrosis. STOMACH AND BOWEL: Evaluation for active GI bleed is limited without IV contrast. No obstruction. No mucosal thickening. PELVIS: APPENDIX: No findings to suggest acute appendicitis. BLADDER: Unremarkable. No stones. REPRODUCTIVE: Unremarkable as visualized. ABDOMEN and PELVIS: INTRAPERITONEAL SPACE: Apparent wall thickening of the transverse and ascending colon could be seco ndary to reactive changes from the ascites. Underlying mass can not be entirely excluded. BONES/JOINTS: No acute fracture. No dislocation. No vertebral height loss of T12, L3 and L4 verte bral bodies. SOFT TISSUES: Diffuse soft tissue edema suggesting anasarca. VASCULATURE: Unremarkable. No abdominal aortic aneurysm. LYMPH NODES: Unremarkable. No enlarged lymph nodes. OTHER FINDINGS: . . IMPRESSION: 1. Diffuse soft tissue edema suggesting anasarca. 2. Apparent wall thickening of the transverse and ascending colon could be secondary to reactive jovanna nges from the ascites. Underlying mass can not be entirely excluded. 3. Large left pleural effusion. 4. Cirrhosis without ascites. 5. Evaluation for active GI bleed is limited without IV contrast. 6. Cholelithiasis.
[2025-01-13] MEDS: vasopressin inj. 40 UNIT in normal saline 50ml IV soln 38 ML IV SCH (21:04)
[2025-01-13] MEDS: PHENYLephrine 10mg/ml inj. 50 MG in normal saline 250ml IV soln 245 ML IV SCH (21:43)
[2025-01-13] MEDS: CefTRIAXone/D5W-Rocephin 1gm 50 ML IV ONE (23:31)
[2025-01-14] VITALS (33 sets, daily range): BP systolic 82–110; BP diastolic 42–61; PULSE 104–117; RESP 11–28; O2SAT 90–97
[2025-01-14] MEDS: normal saline 1000ml 1,000 ML IV ONE ×2 (00:05→01:04)
--- NOTE | 2025-01-14 00:30 | PROGRESS NOTE ---
Progress Note Dictate Providers to CC ~Shock-chronic liver disease- sepsis- SBP Progress Note: Patient with *chronic liver disease- cirrhosis decompensated *hypersplenism *ascites admitted woth low BP trends. W/U showed ascitic fluid to be infected With a total white cell count of over 3000 per cubic millimeters Continues to remain hypotensive with pressors on board Levophed kesha and vaso. Has no CVP documented multiple times requiring fluid boluses. Patient received antibiotics a gram of Rocephin in the ED and another gram in the ICU to make a total of 2 g. She should continue 2 g daily. Also reviewed rest of the labs as persistently elevated INR, and lactic acid. CT of the abdomen was performed results are pending Antibiotic Ordered?: N/A Objective Vitals Vital Signs Date Time Temp Pulse Resp B/P (MAP) Pulse Ox O2 Delivery O2 Flow Rate FiO2 01/14/25 00:38 113 20 Nasal Cannula 2.0 01/14/25 00:34 92 28 01/14/25 00:05 91/47 01/13/25 23:00 101.1 Lab Results: 01/13/25 1833 01/13/25 1204 Coagulation Studies Laboratory Tests Test 01/13/25 12:04 Prothrombin Time 16.7 SECONDS (9.0-12.0) H INR International Normalized Ratio 1.7 INR Activated Partial Thromboplast Time 34 SECONDS (22-32) H Coagulation Comments Problem\Assessment\Plan Additional Plan 1. Decompensated liver disease cirrhosis portal hypertension and ascites 2. Spontaneous bacterial peritonitis 3. Pancytopenia secondary to hypersplenism 4. Sepsis secondary to gram-negative's 5. Septic shock 6. ALHAJI Plans Antibiotics Rocephin 2 gram daily Will use pressors, midodrine, albumin, and octreotide-to prevent ALHAJI SBP patient Pressors to keep MAP around 60 and systolic at 90s He probably runs low blood pressures at baseline-when possible we will trace records from outpatient settings. At risk for progressive renal disease at this time. Hence long-term care plans need to be discussed with the patient. Looks like he has persistent ascites may be a candidate for TIPS will need to discuss with patient and make proper referrals in the a.m. YUSUF SHUKLA MD January 14, 2025 00:30
[2025-01-14] MEDS: albumin (human) 25% 100ml IV 100 ML IV ONE (01:07)
[2025-01-14 03:14] LABS: LYMPHOCYTES # (AUTO) 0.2 X10'3 (1.1-4.8); MONOCYTES # (AUTO) 0.2 X10'3 (0-0.9); MONOCYTES % (AUTO) 1.9 % (2-12)
[2025-01-14 03:17] LABS: BASOPHILS % (AUTO) 0.2 % (0-1); EOSINOPHILS # (AUTO) 0.1 X10'3 (0-0.9); EOSINOPHILS % (AUTO) 0.5 % (0-6); HEMATOCRIT 25.7 % (42.0-52.0); HEMOGLOBIN 8.5 g/dl (14.0-17.9); MEAN CORPUSCULAR HEMOGLOBIN 37.4 PG (27.0-31.0); MEAN CORPUSCULAR HGB CONC 33.1 g/dL (33.0-36.5); MEAN CORPUSCULAR VOLUME 113.2 FL (78-98); MEAN PLATELET VOLUME 8.4 FL (7.4-10.4); NEUTROPHILS # (AUTO) 9.5 X10'3 (1.8-7.7); NEUTROPHILS % (AUTO) 95.4 % (42-75); PLATELET COUNT 66 X10'3 (140-440); RED BLOOD COUNT 2.27 X10'6 (4.70-6.10); RED CELL DISTRIBUTION WIDTH 19.3 % (11.5-14.5); WHITE BLOOD COUNT 9.9 X10'3 (4.5-11.0)
[2025-01-14 03:25] LABS: ALANINE AMINOTRANSFERASE 30 U/L (12-78); ALBUMIN 3.1 G/DL (3.4-5.0); ALKALINE PHOSPHATASE 46 IU/L (46-116); ANION GAP 19 (8-16); ASPARTATE AMINO TRANSFERASE 47 U/L (10-37); BILIRUBIN,TOTAL 9.1 MG/DL (0.1-1.0); BLOOD UREA NITROGEN 25 MG/DL (7-18); BUN/CREATININE RATIO 15.4 (10.0-20.0); CALCIUM 8.1 MG/DL (8.5-10.1); CHLORIDE 104 MMOL/L (99-107); CREATININE 1.62 MG/DL (0.60-1.10); MAGNESIUM 1.5 MG/DL (1.5-2.4); POTASSIUM 3.8 MMOL/L (3.5-5.1); SODIUM 136 MMOL/L (135-145); eCRCL 52 ML/MIN; eGFR 42 ML/MIN
[2025-01-14 03:31] LABS: TOTAL CARBON DIOXIDE 13.4 MMOL/L (24-32)
[2025-01-14 03:32] LABS: ALBUMIN/GLOBULIN RATIO 0.9 (1.1-1.5); GLUCOSE 92 MG/DL (70-104); PHOSPHORUS 4.1 MG/DL (2.3-4.5); TOTAL PROTEIN 6.4 G/DL (6.4-8.2)
[2025-01-14 03:59] LABS: ANISOCYTOSIS 1+; BANDS% (MANUAL) 49 % (0-10); LYMPHOCYTES % (MANUAL) 1 % (21-51); METAMYLEOCYTES% (MANUAL) 3 % (0-0); NEUTROPHILS % (MANUAL) 47 % (42-75); PLATELET ESTIMATE DECREASED; TOTAL CELLS COUNTED 100
[2025-01-14 04:00] LABS: POIKILOCYTOSIS FEW; SCHISTOCYTES FEW
[2025-01-14] MEDS: sodium bicarbonate 1meq/ml inj 150 ML in dextrose 5%-water 1,000 ML IV SCH (04:00)
[2025-01-14 04:01] LABS: TOXIC VACUOLATION 1+
[2025-01-14] MEDS: magnesium sulf-water 2g/50mL 50 ML IV ONE (04:05)
[2025-01-14] MEDS ORDERED: albumin (human) 25% 100ml IV 100 ML in normal saline 500ml IV soln 400 ML IV ONE (06:20)
[2025-01-14] MEDS: albumin (Human) 5% 250ml 250 ML IV ONE ×2 (07:23→07:24)
[2025-01-14] MEDS: NORMAL SALINE IV ONE (07:36)
[2025-01-14] MEDS: CefTRIAXone 2gm/D5W 50ml BAG 50 ML IV SCH (07:36)
[2025-01-14] MEDS: TOBRAMYCIN IV ONE (07:36)
--- NOTE | 2025-01-14 07:45 | PROGRESS NOTE ---
Progress Note Dictate Providers to CC ~ Central Line/PICC still needed: N\A Recinos Indications Met/Not Met: F/C Indications Not Met Antibiotic Ordered?: Yes Subjective Subjective Pressors initiated last night Objective Vitals Vital Signs Date Time Temp Pulse Resp B/P (MAP) Pulse Ox O2 Delivery O2 Flow Rate FiO2 01/14/25 07:37 111 20 Nasal Cannula 2.0 01/14/25 07:30 93 28 01/14/25 07:00 100.2 95/46 (62) Lab Results: 01/14/25 0230 01/14/25 0230 Objective Heart: S1-2 reg Lungs: ronchi at bases Abd: soft, nontender, BS (+) Ext: Edema (+) Coagulation Studies Laboratory Tests Test 01/13/25 12:04 Prothrombin Time 16.7 SECONDS (9.0-12.0) H INR International Normalized Ratio 1.7 INR Activated Partial Thromboplast Time 34 SECONDS (22-32) H Coagulation Comments Problem\Assessment\Plan Additional Plan 1-Severe Sepsis + Shock due to UTI -Pressors as needed -IVF resuscitation -Continue abx 2-Gram (-) Bacteremia + UTI -Tobra*1 -F/U culttures 3-Liver Cirrhosis -Continue Lactulose -Add Rifaximin Jaylon Schroeder CC time 35min Sepsis Screening Reassessment Date: January 14, 2025 HOLLI SCHROEDER MD January 14, 2025 07:45
[2025-01-14] MEDS ORDERED: midodrine 5mg tablet PO SCH (08:00)
[2025-01-14] MEDS ORDERED: octreotide 100mcg/1 ml ampule SQ SCH (08:00)
[2025-01-14] MEDS ORDERED: albumin (human) 25% 100 ML IV solution IV SCH (08:00)
[2025-01-14 08:14] LABS: ALBUMIN 3.1 G/DL (3.4-5.0); ANION GAP 16 (8-16); BLOOD UREA NITROGEN 28 MG/DL (7-18); BUN/CREATININE RATIO 16.9 (10.0-20.0); CHLORIDE 106 MMOL/L (99-107); CREATININE 1.66 MG/DL (0.60-1.10); SODIUM 138 MMOL/L (135-145); TOTAL CARBON DIOXIDE 16.3 MMOL/L (24-32); eCRCL 51 ML/MIN; eGFR 41 ML/MIN
[2025-01-14 08:17] LABS: GLUCOSE 95 MG/DL (70-104)
[2025-01-14] MEDS: morphine 2 MG/ML inj. syringe IV PRN (08:23)
[2025-01-14] MEDS: NORepinephrine 32 MG in normal saline 250ml IV soln 218 ML IV SCH (09:50)
--- NOTE | 2025-01-14 12:41 | CONSULTATION REPORT - RESIDENT ---
Consult Providers to CC Resident Creating Document: KIMBERLY NAQVIRAMONELOGAN WILMAR CC: MARILOU GELLER MD History of Present Illness Reason for Admit\Complaint: Generalized weakness History of Present Illness Patient was admitted with the following HPI: [age] year old male past medical history of decompensated liver cirrhosis, Bi- weekly paracentesis presented to the ED today chief complaints of worsening generalized weakness that started since the last three days after he had a paracentesis done in the ER where around 4 L fluid were removed. The patient reports that he got his regular bi-weekly paracentesis done three days ago after which started having severe nausea and vomiting, dizziness and worsening generalized weakness. The patient's is at the bedside and reports that the patient has been very nauseated and has been throwing up whatever she eats since Saturday and hence was not able to take his daily lactulose or any other medications. She was worried that the patient might get confused if he does not take his lactulose and hence brought him to the ER today requesting a repeat paracentesis to be done. The patient currently reports of pain in his left hip which is chronic after he sustained fracture of his left hip. He denies any other concerns or complaints at the moment such as chest pain, palpitations, headaches, cognition, abdominal pain, diarrhea or constipation. The patient's last bowel movement was yesterday. The patient underwent a therapeutic paracentesis in the ER and 4 L fluid was drained. Ordered diagnostic studies now, we will follow up accordingly. Allergies: Coded Allergies: acetaminophen (Unverified Allergy, Unknown, D/T CIRRHOSIS, 01/13/25) hydrocodone (Unverified Allergy, Unknown, D/T CIRRHOSIS, 01/13/25) ibuprofen (Unverified Allergy, Unknown, D/T CIRRHOSIS, 01/13/25) Home Medications Home Medications Active Lactulose 10 Gram/15 Ml Solution 45 Gm PO Q6H Take this medication 4 times a day you need to have two loose stools at least a day so you do not get confused. Do not ever stopped taking his medication. Xifaxan (Rifaximin) 550 Mg Tablet 550 Mg PO BID Reported Ventolin Hfa (Albuterol Sulfate) 90 Mcg Hfa.aer.ad 2 Puff INH 4-6 HOURS PRN Tramadol Hcl (Tramadol HCl) 50 Mg Tablet 1 Tab PO BID PRN Furosemide 20 Mg Tablet 1 Tab PO BID Spironolactone 25 Mg Tablet 1 Tab PO DAILY Vitamine B-1 (Thiamine Hcl) 100 Mg Tablet 1 Tab PO DAILY Folic Acid* (Folic Acid) Y Tab 1 Tab PO DAILY Midodrine Hcl 10 Mg Tablet 1 Tab PO TID Past Medical History Past Medical History End stage liver disease Alcoholic liver cirrhosis Ascites requiring biweekly paracentesis History of stroke History of hepatitis C Past Surgical History Surgical History Comment Bilateral inguinal hernia surgeries Family History Family History: FH: breast cancer MOTHER Sister FH: liver cancer FATHER Past Social History Social History Comment History of alcohol use disorder, sober for 10 years He quit smoking four years ago, used to smoke about half pack a day, started in high school. He also used to chew tobacco occasionally, quit four years ago. No recreational drugs Lives with spouse ROS ROS All systems were reviewed and found negative except for pertinent positives mentioned in HPI Exam Vitals: Vital Signs Date Time Temp Pulse Resp B/P (MAP) Pulse Ox O2 Delivery O2 Flow Rate FiO2 01/14/25 12:00 99.3 115 22 110/61 (77) 91 Nasal Cannula 6.0 01/14/25 10:44 36 General: General: awake, alert oriented to place, time, and person HEENT: Right IJ central line present. Heart pallor present, anicteric sclera, moist mucous membranes Neck: No masses and tenderness Resp: Unlabored. Lungs clear to auscultation bilaterally. Heart: Regular Rate and rhythm, normal S1 and S2 without murmur, rub or gallop Abdomen: Soft and mildly tender to palpation, no organomegaly, no guarding and rigidity, bowel sounds present Neuro: No weakness in the upper and lower limb muscles, power of the muscles 4/5 bilateral upper and lower muscles, knee reflex present bilaterally. Cranial nerves intact Extremities: No cyanosis,clubbing or edema Skin: Warm and Dry. No lesions. significant jaundice Diagnostic Data Last Recorded Lab Results: 01/14/25 0230 01/14/25 0745 Diagnostic Data: Laboratory Tests Test 01/13/25 12:04 Prothrombin Time 16.7 SECONDS (9.0-12.0) H INR International Normalized Ratio 1.7 INR Activated Partial Thromboplast Time 34 SECONDS (22-32) H Coagulation Comments Additional Plan Hypovolemic/septic shock Decompensated end stage liver disease Alcoholic liver cirrhosis Hx of hep C UTI Ascites Patient has a history of biweekly paracentesis. Patient had a paracentesis done three days during which 4-5 L of fluid was removed hence since then the patient has been having symptoms of generalized weakness, dizziness, fatigue, nausea and vomiting. He underwent another paracentesis in the ER today and 4 L of fluid was need. Ordered fluid analysis He developed significant hypotension after the paracentesis Started the patient on IV albumin for fluid resuscitation in ED On IV ceftriaxone 2 g daily + Vancomycin + rifaximin On pressors Lactulose 20 mg p.o. b.i.d.. The goal will be to achieve at least 2-3 bowel movements per day. IV ondansetron for nausea and vomiting. IV Protonix 40 once daily for GI prophylaxis. Continue recommendations per radio board operator announcer Metabolic acidosis Lactic acidosis Most likely due to decompensated liver failure. On bicarb drip Chronic left hip pain As needed tramadol 50 mg b.i.d. for severe pain. ALHAJI Most likely secondary to acute tubular necrosis. Continue fluid resuscitation. We will continue to monitor renal function test closely. COPD Not in exacerbation. On Duoneb nebulization Q4H. RT eval and treat. CODE STATUS: DNR DVT prophylaxis: SCDs GI prophylaxis: IV Protonix Diet: Regular Disposition: Continue care in CICU, continue recommendations per radio board operator announcer Logan Grant MD Internal Medicine Resident PGY-1 Date of Service: January 14, 2025 Billing Provider: MARILOU GELLER MD, LEONARDO LUIS January 14, 2025 12:41
[2025-01-14] MEDS ORDERED: VANCOMYCIN 1,500MG inj. 1,500 MG in normal saline 500ml IV soln 300 ML IV ONE (12:45)
[2025-01-14] MEDS: VANCOMYCIN/H2O 1.5g/300mL PB 300 ML IV ONE (13:59)
[2025-01-15] VITALS (62 sets, daily range): BP systolic 91–125; BP diastolic 43–71; PULSE 93–114; RESP 11–22; O2SAT 81–97
[2025-01-15] MEDS: vancomycin/NS 1 GM ADD-VANTAGE 250 ML IV SCH (00:47)
[2025-01-15 03:07] LABS: EOSINOPHILS # (AUTO) 0.1 X10'3 (0-0.9); MONOCYTES # (AUTO) 0.5 X10'3 (0-0.9)
[2025-01-15 03:09] LABS: BASOPHILS % (AUTO) 0.2 % (0-1); EOSINOPHILS % (AUTO) 0.8 % (0-6); HEMATOCRIT 25.1 % (42.0-52.0); HEMOGLOBIN 8.4 g/dl (14.0-17.9); LYMPHOCYTES # (AUTO) 0.5 X10'3 (1.1-4.8); LYMPHOCYTES % (AUTO) 2.6 % (21-51); MEAN CORPUSCULAR HEMOGLOBIN 38.1 PG (27.0-31.0); MEAN CORPUSCULAR HGB CONC 33.6 g/dL (33.0-36.5); MEAN CORPUSCULAR VOLUME 113.5 FL (78-98); MEAN PLATELET VOLUME 7.7 FL (7.4-10.4); NEUTROPHILS # (AUTO) 16.3 X10'3 (1.8-7.7); NEUTROPHILS % (AUTO) 93.4 % (42-75); RED BLOOD COUNT 2.21 X10'6 (4.70-6.10); RED CELL DISTRIBUTION WIDTH 19.9 % (11.5-14.5); WHITE BLOOD COUNT 17.4 X10'3 (4.5-11.0)
[2025-01-15 03:17] LABS: PLATELET COUNT 34 X10'3 (140-440)
[2025-01-15 03:36] LABS: ALANINE AMINOTRANSFERASE 30 U/L (12-78); ALKALINE PHOSPHATASE 39 IU/L (46-116); ANION GAP 11 (8-16); ASPARTATE AMINO TRANSFERASE 63 U/L (10-37); BILIRUBIN,TOTAL 6.9 MG/DL (0.1-1.0); BLOOD UREA NITROGEN 38 MG/DL (7-18); BUN/CREATININE RATIO 22.2 (10.0-20.0); CALCIUM 8.2 MG/DL (8.5-10.1); CHLORIDE 104 MMOL/L (99-107); CREATININE 1.71 MG/DL (0.60-1.10); MAGNESIUM 1.9 MG/DL (1.5-2.4); POTASSIUM 4.2 MMOL/L (3.5-5.1); SODIUM 136 MMOL/L (135-145); TOTAL CARBON DIOXIDE 20.9 MMOL/L (24-32); eCRCL 49 ML/MIN; eGFR 40 ML/MIN
[2025-01-15 03:43] LABS: GLUCOSE 80 MG/DL (70-104); PHOSPHORUS 4.5 MG/DL (2.3-4.5); TOTAL PROTEIN 6.1 G/DL (6.4-8.2)
[2025-01-15 03:45] LABS: BANDS% (MANUAL) 21 % (0-10); LYMPHOCYTES % (MANUAL) 2 % (21-51); METAMYLEOCYTES% (MANUAL) 1 % (0-0); MONOCYTES % (MANUAL) 2 % (2-12); NEUTROPHILS % (MANUAL) 74 % (42-75); TOTAL CELLS COUNTED 100
[2025-01-15 03:46] LABS: ANISOCYTOSIS 1+; PLATELET ESTIMATE DECREASED
[2025-01-15 03:47] LABS: TOXIC VACUOLATION 1+
--- NOTE | 2025-01-15 06:18 | PROGRESS NOTE ---
Progress Note Dictate Providers to CC ~ Progress Note: Gradually deteriorating. Anuric. Remains on pressors Central Line/PICC still needed: Yes Recinos Indications Met/Not Met: F/C Indications Not Met Antibiotic Ordered?: Yes Subjective Subjective Confuse Objective Vitals Vital Signs Date Time Temp Pulse Resp B/P (MAP) Pulse Ox O2 Delivery O2 Flow Rate FiO2 01/15/25 05:45 97.7 111 13 109/54 (72) 92 Nasal Cannula 6.0 01/15/25 03:16 44 Lab Results: 01/15/25 0255 01/15/25 025 Objective Heart: S1-2 reg Lungs: ronchi at bases Abd: soft, nontender, BS (+) Ext: Edema (+) Coagulation Studies Laboratory Tests Test 01/13/25 12:04 Prothrombin Time 16.7 SECONDS (9.0-12.0) H INR International Normalized Ratio 1.7 INR Activated Partial Thromboplast Time 34 SECONDS (22-32) H Coagulation Comments Problem\Assessment\Plan Additional Plan 1-Severe Sepsis + Shock -Supportive Tx 2-ALHAJI -F/U BUN/creat 3-UTI -Continue abx -F/U cultures 4-Peritonitis -Continue abx -F/U cultures 5-Bacteremia Gram (-) Dismal prognosis. Will continue d/w family. Currently DNR Jaylon Schroeder CC time 35min Sepsis Screening Reassessment Date: January 15, 2025 HOLLI SCHROEDER MD January 15, 2025 06:18
[2025-01-15] MEDS: rifaximin 550mg tablet PO SCH (07:01)
[2025-01-15] MEDS: pantoprazole 40mg Tablet.DR PO SCH (07:01)
[2025-01-15] MEDS: albumin (human) 25% 100 ML IV solution IV SCH (09:08)
[2025-01-15] MEDS ORDERED: lactulose 20gm/30ml cup PO PRN (14:45)
--- NOTE | 2025-01-15 18:06 | PROGRESS NOTE- Residence ---
Progress Note - Resident Providers to CC Resident Creating Document: LOGAN MOREL CC: MARILOU GELLER MD ~ Antibiotic Timeout Antibiotic Ordered?: Yes Subjective Patient was seen at bedside in CICU. Patient remains in multiple pressors and seems to be deteriorating. He is otherwise cooperative with care and does not have any significant complaints Objective Vital Signs Date Time Temp Pulse Resp B/P (MAP) Pulse Ox O2 Delivery O2 Flow Rate FiO2 01/15/25 17:30 106 17 98/58 (71) 94 High Flow Nasal Cannula 12.0 01/15/25 16:00 98.4 01/15/25 11:08 67 Result Diagram: 01/15/2525401/15/25 025 General: awake, alert oriented to place, time, and person HEENT: Right IJ central line present. Heart pallor present, anicteric sclera, moist mucous membranes Neck: No masses and tenderness Resp: Unlabored. Lungs clear to auscultation bilaterally. Heart: Regular Rate and rhythm, normal S1 and S2 without murmur, rub or gallop Abdomen: Soft and mildly tender to palpation, no organomegaly, no guarding and rigidity, bowel sounds present Neuro: No weakness in the upper and lower limb muscles, power of the muscles 4/5 bilateral upper and lower muscles, knee reflex present bilaterally. Cranial nerves intact Extremities: No cyanosis,clubbing or edema Skin: Warm and Dry. No lesions. significant jaundice Coagulation Studies Laboratory Tests Test 01/13/25 12:04 Prothrombin Time 16.7 SECONDS (9.0-12.0) H INR International Normalized Ratio 1.7 INR Activated Partial Thromboplast Time 34 SECONDS (22-32) H Coagulation Comments Plan Plan Hypovolemic/septic shock Decompensated end stage liver disease Alcoholic liver cirrhosis Hx of hep C UTI Ascites Patient has a history of biweekly paracentesis. Patient had a paracentesis done three days during which 4-5 L of fluid was removed hence since then the patient has been having symptoms of generalized weakness, dizziness, fatigue, nausea and vomiting. He underwent another paracentesis in the ER today and 4 L of fluid was need. Ordered fluid analysis He developed significant hypotension after the paracentesis On IV ceftriaxone 2 g daily + Vancomycin + rifaximin, day 3 On multiple pressors IV ondansetron for nausea and vomiting. IV Protonix 40 once daily for GI prophylaxis. Continue recommendations per international guest coordinator Metabolic acidosis Lactic acidosis Most likely due to decompensated liver failure. Bicarb drip DC'd Continue recommendations per international guest coordinator Chronic left hip pain As needed tramadol 50 mg b.i.d. for severe pain. ALHAJI Most likely secondary to acute tubular necrosis. Continue fluid resuscitation. We will continue to monitor renal function test closely. COPD Not in exacerbation. On Duoneb nebulization Q4H. RT eval and treat. CODE STATUS: DNR DVT prophylaxis: SCDs GI prophylaxis: IV Protonix Diet: Regular Disposition: Continue care in CICU, continue recommendations per international guest coordinator Logan Grant MD Internal Medicine Resident PGY-1 Date of Service: January 15, 2025 Billing Provider: MARILOU GELLER MD, LEONARDO LUIS January 15, 2025 18:06
[2025-01-16] VITALS (31 sets, daily range): BP systolic 52–129; BP diastolic 27–73; PULSE 74–112; RESP 8–19; O2SAT 71–98
[2025-01-16] MEDS: VANCOMYCIN LEVEL IV ONE ×2 (00:59→15:52)
[2025-01-16 01:09] LABS: BASOPHILS % (AUTO) 0.1 % (0-1); LYMPHOCYTES # (AUTO) 0.5 X10'3 (1.1-4.8); LYMPHOCYTES % (AUTO) 2.5 % (21-51); RED BLOOD COUNT 2.15 X10'6 (4.70-6.10)
[2025-01-16 01:11] LABS: EOSINOPHILS % (AUTO) 0.2 % (0-6); HEMATOCRIT 23.5 % (42.0-52.0); MEAN CORPUSCULAR HEMOGLOBIN 37.1 PG (27.0-31.0); MEAN CORPUSCULAR HGB CONC 33.8 g/dL (33.0-36.5); MEAN CORPUSCULAR VOLUME 109.7 FL (78-98); MEAN PLATELET VOLUME 7.9 FL (7.4-10.4); MONOCYTES # (AUTO) 0.9 X10'3 (0-0.9); MONOCYTES % (AUTO) 5.2 % (2-12); NEUTROPHILS # (AUTO) 16.9 X10'3 (1.8-7.7); RED CELL DISTRIBUTION WIDTH 19.1 % (11.5-14.5); WHITE BLOOD COUNT 18.3 X10'3 (4.5-11.0)
[2025-01-16 01:19] LABS: PLATELET COUNT 21 X10'3 (140-440)
[2025-01-16 01:24] LABS: ALANINE AMINOTRANSFERASE 37 U/L (12-78); ALBUMIN 3.9 G/DL (3.4-5.0); ALKALINE PHOSPHATASE 45 IU/L (46-116); ANION GAP 9 (8-16); ASPARTATE AMINO TRANSFERASE 62 U/L (10-37); BILIRUBIN,TOTAL 9.1 MG/DL (0.1-1.0); BLOOD UREA NITROGEN 51 MG/DL (7-18); BUN/CREATININE RATIO 30.2 (10.0-20.0); CALCIUM 8.8 MG/DL (8.5-10.1); CHLORIDE 101 MMOL/L (99-107); CREATININE 1.69 MG/DL (0.60-1.10); GLUCOSE 101 MG/DL (70-104); MAGNESIUM 2.2 MG/DL (1.5-2.4); POTASSIUM 4.4 MMOL/L (3.5-5.1); SODIUM 133 MMOL/L (135-145); TOTAL CARBON DIOXIDE 22.6 MMOL/L (24-32); eCRCL 50 ML/MIN; eGFR 40 ML/MIN
[2025-01-16 01:30] LABS: ALBUMIN/GLOBULIN RATIO 1.4 (1.1-1.5); PHOSPHORUS 3.3 MG/DL (2.3-4.5); TOTAL PROTEIN 6.7 G/DL (6.4-8.2)
[2025-01-16 02:41] LABS: PLATELET ESTIMATE DECREASED; TOTAL CELLS COUNTED 100
[2025-01-16 02:42] LABS: ANISOCYTOSIS 2+
--- NOTE | 2025-01-16 06:54 | PROGRESS NOTE ---
Progress Note Dictate Providers to CC ~ Progress Note: Remains on pressors. Improve urine output. Central Line/PICC still needed: Yes Recinos Indications Met/Not Met: F/C Indications Met Antibiotic Ordered?: Yes Subjective Subjective Comfortable Objective Vitals Vital Signs Date Time Temp Pulse Resp B/P (MAP) Pulse Ox O2 Delivery O2 Flow Rate FiO2 01/16/25 06:30 102 9 112/63 (79) 95 High Flow Nasal Cannula 12.0 01/16/25 05:00 97.2 01/16/25 02:38 67 Lab Results: 01/16/255401/16/2554 Objective Heart: S1-2 reg Lungs: ronchi at bases Abd: soft, nontender, BS (+) Ext: Edema (+) Neuro: Confuse Coagulation Studies Laboratory Tests Test 01/13/25 12:04 Prothrombin Time 16.7 SECONDS (9.0-12.0) H INR International Normalized Ratio 1.7 INR Activated Partial Thromboplast Time 34 SECONDS (22-32) H Coagulation Comments Problem\Assessment\Plan Additional Plan 1-Severe Sepsis + Shock -Pressors per protocol 2-UTI: Enterococcus Faecalis -Vancomycin as per Pharmacy -Change to Ampicillin? 3-SBP: Enterobacter -Continue Ceftrixone 4-Hepatic Encephalopathy -Lactulose/Rifaximin 5-ALHAJI -F/U MARCIE Schroeder CC time 35min Sepsis Screening Reassessment Date: January 16, 2025 HOLLI SCHROEDER MD January 16, 2025 06:54
--- NOTE | 2025-01-16 09:27 | PROGRESS NOTE- Residence ---
Progress Note - Resident Providers to CC Resident Creating Document: LOGAN MOREL CC: MARILOU GELLER MD ~ Antibiotic Timeout Antibiotic Ordered?: Yes Subjective Patient was seen at bedside in CICU. He is very drowsy and attempts to open his eyes when I call his name, but unable to follow commands. Objective Vital Signs Date Time Temp Pulse Resp B/P (MAP) Pulse Ox O2 Delivery O2 Flow Rate FiO2 01/16/25 09:00 103 10 126/72 (90) 95 High Flow Nasal Cannula 12.0 01/16/25 08:00 98.1 01/16/25 02:38 67 Result Diagram: 01/16/255401/16/2554 General: Drowsy, not following commands, attempts to open eyes upon verbal stimuli HEENT: Right IJ central line present. Heart pallor present, anicteric sclera, moist mucous membranes Neck: No masses and tenderness Resp: Unlabored. Lungs clear to auscultation bilaterally. Heart: Regular Rate and rhythm, normal S1 and S2 without murmur, rub or gallop Abdomen: Soft, distended, patient grunts upon palpation. no organomegaly, no guarding and rigidity, bowel sounds present Neuro: No weakness in the upper and lower limb muscles, power of the muscles 3/5 bilateral upper and lower muscles, knee reflex present bilaterally. Cranial nerves intact Extremities: 3+ lower extremity edema. No cyanosis or clubbing Skin: Warm and Dry. significant jaundice Coagulation Studies Laboratory Tests Test 01/13/25 12:04 Prothrombin Time 16.7 SECONDS (9.0-12.0) H INR International Normalized Ratio 1.7 INR Activated Partial Thromboplast Time 34 SECONDS (22-32) H Coagulation Comments Plan Plan Severe hypovolemic/septic shock Decompensated end stage liver disease Alcoholic liver cirrhosis Hx of hep C UTI Ascites On IV ceftriaxone 2 g daily + Vancomycin + rifaximin, day 4 On multiple pressors and albumin IV ondansetron for nausea and vomiting. IV Protonix 40 once daily for GI prophylaxis. Continue recommendations per digester Metabolic acidosis Lactic acidosis On bicarb drip Continue recommendations per digester Chronic left hip pain As needed tramadol 50 mg b.i.d. for severe pain. ALHAJI Most likely secondary to acute tubular necrosis. Continue fluid resuscitation. We will continue to monitor renal function test closely. COPD Not in exacerbation. CODE STATUS: DNR DVT prophylaxis: SCDs GI prophylaxis: IV Protonix Diet: Regular Disposition: Continue care in CICU, continue recommendations per digester. Needle Polisher has had conversations with family regarding comfort care, they are thinking about it. Logan Grant MD Internal Medicine Resident PGY-1 Date of Service: January 16, 2025 Billing Provider: MARILOU GELLER MD, LEONARDO LUIS January 16, 2025 09:27
[2025-01-16] MEDS ORDERED: LORazepam 2 mg/ml vial IV PRN (11:35)
[2025-01-16] MEDS: morphine 10mg/ml inj. IV PRN (11:49)
--- NOTE | 2025-01-16 17:21 | DISCHARGE SUMMARY-Residence ---
Discharge Summary Providers to CC Resident Creating Document: KIMBERLY WILDCARLO WILMAR CC: MARILOU GELLER MD ~ Discharge Summary Admission Diagnosis: Hypotension, decompensated liver failure Hospital Course DATE OF ADMISSION: 01/13/2025 DATE OF DISCHARGE: 01/16/2025 Discharge Diagnosis\Comment: Severe hypovolemic/septic shock 2/2 SBP Decompensated end stage liver disease Alcoholic liver cirrhosis Hx of hep C UTI Ascites Metabolic acidosis Lactic acidosis Chronic left hip pain ALHAJI COPD Operations\Procedures: Paracentesis Consultants: None Complications: None Condition on DC: Discharge Summary: Patient was admitted with the following HPI: [age] and old male past medical history of decompensated liver cirrhosis, Bi- weekly paracentesis presented to the ED today chief complaints of worsening generalized weakness that started since the last three days after he had a paracentesis done in the ER where around 4 L fluid was removed. The patient reports that he got his regular by weekly paracentesis done three days ago after which started having severe nausea and vomiting, dizziness and worsening generalized weakness. The patient's is at the bedside and reports that the patient has been very nauseated and has been throwing up whatever she eats since Saturday and hence was not able to take his daily lactulose or any other medications. She was worried that the patient might get confused if he does not take his lactulose and hence brought him to the ER today requesting a repeat paracentesis to be done. The patient currently reports of pain in his left hip which is chronic after he sustained fracture of his left hip. He denies any other concerns or complaints at the moment such as chest pain, palpitations, headaches, cognition, abdominal pain, diarrhea or constipation. The patient's last bowel movement was yesterday. The patient underwent a therapeutic paracentesis in the ER and 4 L fluid was drained. Ordered diagnostic studies now, we will follow up accordingly. Hospital course: () Patient was admitted with diagnosis of hypovolemic shock, septic shock, UTI and decompensated end-stage liver disease. Patient underwent paracentesis, and was admitted to ICU on IV antibiotics, IV fluid resuscitation and several pressors. Despite all interventions patient continued to deteriorate. In view poor prognosis and no clinical improvement, today ICU physician along with family decided to change code status to DNR with comfort care. Comfort care measures whether started and patient was transferred to surgical unit where he with family at bedside. *Problems/Diagnosis: (1) Metabolic encephalopathy Status: Acute (2) Hepatitis C Status: Chronic (3) Decompensated cirrhosis Status: Acute Total Time Spent on D/C: > 30 Minutes Date of Service: January 16, 2025 Billing Provider: MARILOU GELLER MD, LEONARDO LUIS January 16, 2025 17:21
== END 2025-01-16 19:08 | DRG 871 ==
LOC: ER 11:54 → ED HOLD 14:49 → CICU 2S 16:22 → SUR 3N 01-16 15:16
PROVIDERS: ADMIT Internal Medicine Critical Care Medicine; ATTEND Internal Medicine Critical Care Medicine
PROC: 0W9G3ZZ Drainage of Peritoneal Cavity, Percutaneous Approach (ICD-10-PCS; principal; 2025-01-13)
PROC: 5A0935A Assistance with Respiratory Ventilation, Less than 24 Consecutive Hours, High Flow/Velocity Cannula (ICD-10-PCS; 2025-01-15)
PROC: 5A0935A Assistance with Respiratory Ventilation, Less than 24 Consecutive Hours, High Flow/Velocity Cannula (ICD-10-PCS; 2025-01-16)
DX: A41.9 Sepsis, unspecified organism (principal); G93.41 Metabolic encephalopathy; K65.2 Spontaneous bacterial peritonitis; R65.21 Severe sepsis with septic shock; N17.0 Acute kidney failure with tubular necrosis; N39.0 Urinary tract infection, site not specified; E87.20 Acidosis, unspecified; D61.818 Other pancytopenia; Z66 Do not resuscitate; K70.31 Alcoholic cirrhosis of liver with ascites; K72.10 Chronic hepatic failure without coma; D73.1 Hypersplenism; K76.82 Hepatic encephalopathy; J44.9 Chronic obstructive pulmonary disease, unspecified; G89.29 Other chronic pain; M25.552 Pain in left hip; Z88.6 Allergy status to analgesic agent; Z88.8 Allergy status to other drugs, medicaments and biological substances; Z79.899 Other long term (current) drug therapy
CPT/HCPCS: 36415; 36600; 49082; 71045; 74176; 80048; 80053; 81001; 82042; 82140; 82803; 82945; 82948; 83605; 83615; 83735; 84100; 84145; 84157; 85007; 85018; 85025; 85610; 85730; 86885; 86900; 86901; 87040; 87070; 87077; 87081; 87088; 87186; 89051; 93005; 94640; 94760; 99291; A4314; A4615; A4628; A6213; A6222; A6449; A6590; C1751; C1758; G0378; J0696; J2270; J2274; J2371; J2405; J2470; J3260; J3370; J3372; J3490; J7030; J7040; J7050; J7070; P9045; P9047